=== PATIENT | female | born 1965 | race Hispanic/Latino ===

== ENCOUNTER 2017-07-05 14:04 | Outpatient (CLI) | payer OTHER ==
--- NOTE | 2017-07-06 08:35 | Ultrasound Report ---
ABDOMINAL ULTRASOUND: 07/05/17 14:04:00 CLINICAL: Elevated liver function tests. FINDINGS: High-resolution ultrasound demonstrates an enlarged liver with marked diffuse increased echogenicity. The right lung measures 17 cm in length. Limited examination of the liver due to attenuation of the sound and shadowing. Poor imaging of the hepatic vasculature. Sludge in the gallbladder but no stones. The gallbladder is normally distended and the gallbladder wall measures 2mm. Normal bile ducts. The common bile duct measures 2 mm diameter. The pancreas is unremarkable but the pancreatic tail is not imaged. Normal abdominal aorta measuring 1.9 cm. The spleen is mildly enlarged and measures 11.9 x 4.6 x 4.8 cm. Normal kidneys with normal echogenicity and normal non-dilated renal collecting systems and ureters. The right kidney measures 9.9 x 4.7 x 4.2cm. The left kidney measures 11.1 x 5.1 x 4.5cm. No renal mass or calculus. No ascites or mass. IMPRESSION: 1. Hepatic steatosis and hepatomegaly. 2. Gallbladder sludge but no cholelithiasis. 3. No evidence of acute cholecystitis.
== END 2017-07-05 14:05 | disposition home or self-care (01) ==
LOC: SPVWC 14:04
PROVIDERS: ATTEND Internal Medicine Gastroenterology
DX: K76.0 Fatty (change of) liver, not elsewhere classified (principal); R16.2 Hepatomegaly with splenomegaly, not elsewhere classified; R79.89 Other specified abnormal findings of blood chemistry
CPT/HCPCS: 76700